=== PATIENT | female | born 1965 | race Caucasian/White ===

== ENCOUNTER 2017-09-23 08:54 | Inpatient (IN) | payer OTHER ==
[~2017-09-23] VITALS: Ht 162.6 cm; Wt 77.1 kg
[~2017-09-23 08:54] MED LIST: PROVERA2.5 MG
== END 2017-09-29 09:10 | DRG 742 ==
LOC: O/R 09-26 06:00 → SURH 09-26 09:00 → OB/GYN 09-26 19:04
PROVIDERS: Obstetrics & Gynecology Gynecologic Oncology
PROC: 0UT00ZZ Resection of Right Ovary, Open Approach (ICD-10-PCS; 2017-09-26)
PROC: 0UT50ZZ Resection of Right Fallopian Tube, Open Approach (ICD-10-PCS; 2017-09-26)
PROC: 0UBG0ZZ Excision of Vagina, Open Approach (ICD-10-PCS; 2017-09-26)
PROC: 0WBH0ZX Excision of Retroperitoneum, Open Approach, Diagnostic (ICD-10-PCS; 2017-09-26)
PROC: 0UT90ZZ Resection of Uterus, Open Approach (ICD-10-PCS; principal; 2017-09-26 16:45)
DX: D25.1 Intramural leiomyoma of uterus (principal); D62 Acute posthemorrhagic anemia; D25.0 Submucous leiomyoma of uterus; R19.09 Other intra-abdominal and pelvic swelling, mass and lump; N83.11 Corpus luteum cyst of right ovary